=== PATIENT | female | born 1935 | race Caucasian/White ===

== ENCOUNTER 2017-10-18 11:50 | Inpatient (IN) ==
[2017-10-18 14:27] LABS: Basophils # 0.1 K/mcL (0.0-0.2); Basophils % 0.7 %; Eosinophils # 0.1 K/mcL (0.0-0.6); Eosinophils % 1.2 %; Hematocrit 28.9 % (35.3-44.9); Hemoglobin 9.4 g/dL (11.5-15.4); Immature Granulocytes % 0.4 % (0-4); Lymphocytes % 9.6 %; Mean Corpuscular HGB Conc 32.5 g/dL (31.6-35.5); Mean Corpuscular Hemoglobin 30.7 pg (28.0-33.3); Mean Corpuscular Volume 94.4 fL (83.0-100.0); Mean Platelet Volume 11.1 fL (9.4-12.4); Monocytes # 0.5 K/mcL (0.0-1.3); Monocytes % 4.5 %; Platelet Count 208 K/mcL (140-400); Red Blood Count 3.06 M/mcL (3.82-4.97); Red Cell Distribution Width 15.5 % (11.5-14.5); Segmented Neutrophils % 83.6 %
[2017-10-18 14:48] LABS: Alanine Aminotransferase 9 Units/L (7-52); Albumin 4.2 g/dL (3.5-5.7); Albumin/Globulin Ratio 1.4 (1.1-2.2); Alkaline Phosphatase 83 Units/L (34-104); Aspartate Amino Transferase 18 Units/L (13-39); BUN/Creatinine Ratio 19 (6-26); Bilirubin,Total 0.5 mg/dL (0.3-1.0); Blood Urea Nitrogen 15 mg/dL (8-23); Calcium 9.3 mg/dL (8.6-10.3); Carbon Dioxide 28 mEq/L (23-29); Chloride 99 mEq/L (98-107); Globulin 3.1 g/dL (2.4-3.5); Glucose 101 mg/dL (70-105); Osmolality,Calculated 275 (280-300); Potassium 3.9 mEq/L (3.5-5.1); Sodium 132 mEq/L (136-145); Total Protein 7.3 g/dL (6.4-8.9); eGFR For Non-African Americans > 60 (> 60)
[2017-10-18] MEDS ORDERED: Naloxone 0.4 MG/ML INJ IVP PRN (14:54)
[2017-10-18] MEDS ORDERED: Ondansetron 4 MG/2 ML VIAL IVP PRN (14:58)
--- NOTE | 2017-10-18 15:47 | Internal Med History&Physical ---
<PaigeAudi Bunch - Last Filed: 10/18/17 17:56> Date of Encounter: 10/18/17 Time of Encounter: 14:30 Internal Medicine - H&P: HPI Chief complaint: Abdominal pain Admitted From: Intrahospital Transfer Plans for Post Hospital Care: Home History of present illness: Ms. Burr is a 81 year old female w/PMH of CAD, HTN, and TIA presents from the [facility] with chief complaint of abdominal pain and cramping that began after going to bed last night. Patient reports feeling of abdominal swelling and nausea accompanying symptoms. States she has had abdominal pain previously but not like this. Describes pain as generalized and transient. Reports last BM last night was formed. Patient denies recent illness, fever, chills, vomiting, chest pain, diaphoresis, headache, changes in vision, unusual bleeding, shortness of breath, cough, chest congestion, diarrhea, constipation, dizziness , lightheadedness, numbness, tingling, pre-syncope, or syncope. Past Med Surg Social Fam HX - Past Medical History Medical history: coronary artery disease, hyperlipidemia, hypertension, TIA Psychiatric history: no psych history - Past Surgical History Surgical History: cholecystectomy, coronary bypass (CABG), hysterectomy, MEEK/BSO Additional surgical history: 2 stents - Social History Smoking Status: Never smoker Smokeless Tobacco Status: No Alcohol use: none Drug use: none Internal Medicine - H&P: Meds Sertraline [Zoloft] 100 mg PO DAILY 04/29/16 [History] Clopidogrel [Plavix] 75 mg PO DAILY 10/18/17 [History] Diltiazem CD (24hr) [Cardizem CD] 120 mg PO DAILY 10/18/17 [History] Metoprolol [Lopressor] 25 mg PO BID 10/18/17 [History] Oxybutynin Chloride [Ditropan Xl] 5 mg PO DAILY 10/18/17 [History] Pantoprazole Sodium [Protonix] 40 mg PO DAILY 10/18/17 [History] 3 Allergy/AdvReac Type Severity Reaction Status Date / Time Penicillins Allergy Rash Verified 04/17/17 19:28 Sulfa (Sulfonamide Allergy Rash Verified 04/17/17 19:28 Antibiotics) Iodine contrast Allergy Hives Uncoded 04/17/17 19:28 All Systems PM: A 10-system review of systems was performed and is negative for pertinent findings except as documented above in the HPI. - Constitutional Constitutional: as per HPI, no chills, no fever(s), no night sweats - EENT Eyes: no change in vision, no discharge, no pain, no photophobia Ears: no ear discharge, no ear pain, no tinnitus Nose, mouth and throat: no dysphagia, no nasal discharge, no neck pain, no sore throat - Breasts Breasts: as per HPI - Cardiovascular Cardiovascular ROS IM: no chest pain, no diaphoresis, no dyspnea, no lightheadedness, no palpitations, no syncope - Respiratory Respiratory: no cough, no dyspnea, no wheezing, no excessive phlegm production - Gastrointestinal Gastrointestinal: as per HPI, abdominal pain, cramping, nausea, no diarrhea, no hematemesis, no hematochezia, no melena, no vomiting - Genitourinary Genitourinary: no change in urinary stream, no dysuria, no flank pain, no hematuria Menstruation: as per HPI, post hysterectomy - Musculoskeletal Musculoskeletal ROS IM: no numbness, no tingling - Integumentary Integumentary IM: no rash, no unusual bruising - Neurological Neurological ROS: no confusion, no convulsions, no focal weakness, no numbness, no tingling, no tremor(s) - Psychiatric Psychiatric: as per HPI - Endocrine Endocrine IM: as per HPI - Hematologic/Lymphatic Hematologic/Lymphatic: no easy bruising - Allergic/Immunologic Allergic/Immunologic: as per HPI - Constitutional Vitals: Temp Pulse Resp BP Pulse Ox 98.2 F 62 16 97/53 93 10/18/17 13:41 10/18/17 13:41 10/18/17 13:41 10/18/17 13:41 10/18/17 13:41 General appearance: Present: cooperative, A&O X 3, pleasant, no acute distress, answers questions appropriately - Head Head exam: Present: atraumatic, normocephalic - Eye Eye exam: Present: PERRL, conjuntiva pink, sclera anicteric Pupils: Present: PERRL - ENT ENT exam: Present: normal exam - Neck Neck exam general surgery: Present: supple, trachea midline. Absent: lymphadenopathy - Respiratory Respiratory exam: Present: CTAB. Absent: accessory muscle use, rales, rhonchi, wheezes - Cardiovascular Cardiovascular exam: Present: RRR, +S1, +S2. Absent: diastolic murmur, gallop, rubs, systolic murmur - GI/Abdominal GI/Abdominal exam: Present: normal bowel sounds, soft, no peritoneal signs. Absent: distended, tenderness - Rectal Rectal exam: Present: deferred - Additional comments: exam deferred. - Extremities Exam Extremities exam: Present: warm, radial pulses palpable and symmetrical. Absent : calf tenderness, cyanotic, pedal edema - Back Exam Back exam: Present: normal inspection - Neurological Exam Neurological exam: Present: CN II-XII intact, oriented X3, no focal deficits. Absent: pronater drift, facial droop, speech deficit - Psychiatric Psychiatric exam: Present: normal affect, normal mood - Skin Skin exam: Present: dry, intact Internal Med - H&P Results - Labs CBC & Chem 7: 10/18/17 14:10 10/18/17 14:10 Labs: Short CBC 10/18/17 Range/Units 14:10 WBC 10.7 (4.3-11.1) K/mcL Hgb 9.4 L (11.5-15.4) g/dL Hct 28.9 L (35.3-44.9) % Plt Count 208 (140-400) K/mcL Neutrophils # 9.0 H (1.6-8.9) K/mcL BMP 10/18/17 14:10 Sodium 132 L Potassium 3.9 Chloride 99 Carbon Dioxide 28 BUN 15 Creatinine 0.80 Glucose 101 Calcium 9.3 Liver Function 10/18/17 Range/Units 14:10 Total Bilirubin 0.5 (0.3-1.0) mg/dL AST 18 (13-39) Units/L ALT 9 (7-52) Units/L Alkaline Phosphatase 83 (34-104) Units/L Albumin 4.2 (3.5-5.7) g/dL - Diagnostic Studies CT scan - abdomen Additional comments: EXAMINATION: CT OF THE ABDOMEN AND PELVIS WITHOUT CONTRAST 10/18/2017 10:48 am TECHNIQUE: CT of the abdomen and pelvis was performed without the administration of intravenous contrast. Multiplanar reformatted images are provided for review. Dose modulation, iterative reconstruction, and/or weight based adjustment of the mA/kV was utilized to reduce the radiation dose to as low as reasonably achievable. COMPARISON: 04/18/2017 HISTORY: ORDERING SYSTEM PROVIDED HISTORY: abdominal pain, mid, cramping Acute abdominal pain and swelling after eating, initial exam FINDINGS: Lower Chest: Coronary calcification is noted. The heart size is upper normal. Minimal scarring and bronchiectasis is noted at the lung bases. Organs: The gallbladder has been removed. No focal hepatic abnormality is identified. No focal splenic abnormality is appreciated. The pancreas is atrophic. A discrete pancreatic abnormality is not identified. The adrenal glands are unremarkable. The kidneys are not obstructed. GI/Bowel: There is mild small bowel dilatation measuring up to 3.6 cm in diameter. There are several air-fluid levels. There is developing stool within small bowel in the right lower quadrant. The cecum is noted in the posterior pelvis. The appendix not identified. There is no pericecal inflammatory change. There is question of a transition point in the left lower quadrant. There is a small amount of fluid in the mesentery. Changes which are noted in rectosigmoid. Pelvis: The urinary bladder is distended. The uterus has been removed. There is no free fluid in the pelvis. Peritoneum/Retroperitoneum: There is moderate atherosclerotic disease. Postsurgical changes are noted involving the ventral abdominal wall. There is no evidence of free intraperitoneal air. Bones/Soft Tissues: Postsurgical changes are noted in the spine. Anterolisthesis of L4 on L5 is present. There is no evidence of acute fracture or dislocation. CT/CT abd pelvis wo no iv no oral IMPRESSION: 1. Findings consistent with partial small bowel obstruction. A transition point is suspected in the left lower abdomen. 2. Status post cholecystectomy and hysterectomy. D/ / 10/18/2017 11:22:23 Cristi Platt MD / Ashly Pozo Interpreting Provider: Cristi Platt MD - Assessment and plan (1) Partial small bowel obstruction Current Visit: Yes Status: Acute Assessment and plan: Acute partial SBO. CT of the abdomen/pelvis today shows findings consistent with partial small bowel obstruction with transition point suspected in the left lower abdomen. Also status post cholecystectomy and hysterectomy. Pt. reports generalized abdominal pain and cramping that began after going to bed last night. Patient reports feeling of abdominal swelling and nausea accompanying symptoms. States she has had abdominal pain previously but not like this. Describes pain as generalized and transient. Reports last BM last night was formed. Surgery consult ordered and discussed w/Dr. Ely and I appreciate the consult and recommendations as always. Nothing by mouth status for now. Zofran IVP 4 mg every 6 hours when necessary for nausea and vomiting. IVP Protonix 40 mg daily. Will convert his many home meds to IVP meds if necessary. 0.9 NS at 100 mL's per hour. Monitor I&O and daily weight. Pt. discussed w/Dr. Chavez who agrees w/plan of care. Pt. is moderate risk for further morbidity d/t current partial SBO and sx, nausea, hx of previous abdominal pain, drop in Hgb of unknown etiology, and risk factors. Observation. (2) Abdominal pain Current Visit: Yes Status: Acute Assessment and plan: Acute abdominal pain and cramping that began after going to bed last night. Patient reports feeling of abdominal swelling and nausea accompanying symptoms. States she has had abdominal pain previously, but not like this. Describes pain as generalized and transient. Reports last BM last night was formed. No abdominal pain or cramping during exam. Denies unusual bleeding or hemoccult/ melena. IVP Zofran 4 mg Q6HR PRN for N/V. IVP Protonix 40 mg daily. NPO status for now. Qualifiers: Abdominal location: generalized Qualified Code(s): R10.84 - Generalized abdominal pain (3) Drop in hemoglobin Current Visit: Yes Status: Acute Assessment and plan: Acute drop in Hgb today from 9.8 to 9.4. Pt. has hx of low Hgb but denies hx of anemia. Will monitor pt. for signs of bleeding and monitor H/H in f/u labs. (4) CAD (coronary artery disease) Current Visit: Yes Status: Chronic Assessment and plan: Hx of chronic CAD. Continuous cardiac telemetry. Continue pts. Cardizem and Hydralazine ordered PRN w/parameters. Qualifiers: Coronary Disease-Associated Artery/Lesion type: unspecified vessel or lesion type [place] vs. transplanted heart: [place] heart Associated angina: angina presence unspecified Qualified Code(s): I25.10 - Atherosclerotic heart disease of [place] coronary artery without angina pectoris (5) HTN (hypertension) Current Visit: Yes Status: Chronic Assessment and plan: Hx of chronic HTN. Monitor pt. and VS. Will hold pts. Metoprolol for now d/t hypotension and order hydralazine w/parameters PRN. Communication order to monitor pts. BP prior to administering BP medications d/t hypotension. Continue Cardizem (notify provider prior to administering if pt. hypotensive). Qualifiers: Hypertension type: essential hypertension Qualified Code(s): I10 - Essential (primary) hypertension (6) DVT prophylaxis Current Visit: Yes Status: Acute Assessment and plan: Bilateral SCDs on LEs for DVT prophylaxis d/t drop in HGB of unknown etiology. Monitor pt. for signs of bleeding and monitor H/H. - Time Spent With Patient Total time spent is greater than 50% in coordination of care (as documented) at patient's floor/unit and/or counseling patient: Greater than 35 minutes <Luis M Chavez - Last Filed: 10/18/17 19:36> Date of Encounter: 10/18/17 Internal Medicine - H&P: HPI History of present illness: Ms. Burr is a 81 year old female All Systems PM: A 10-system review of systems was performed and is negative for pertinent findings except as documented above in the HPI. - Constitutional Vitals: Temp Pulse Resp BP Pulse Ox 98.2 F 62 16 97/53 93 10/18/17 13:41 10/18/17 13:41 10/18/17 13:41 10/18/17 13:41 10/18/17 13:41 Internal Med - H&P Results - Labs CBC & Chem 7: 10/18/17 14:10 10/18/17 14:10 Labs: Short CBC 10/18/17 Range/Units 14:10 WBC 10.7 (4.3-11.1) K/mcL Hgb 9.4 L (11.5-15.4) g/dL Hct 28.9 L (35.3-44.9) % Plt Count 208 (140-400) K/mcL Neutrophils # 9.0 H (1.6-8.9) K/mcL BMP 10/18/17 14:10 Sodium 132 L Potassium 3.9 Chloride 99 Carbon Dioxide 28 BUN 15 Creatinine 0.80 Glucose 101 Calcium 9.3 Liver Function 10/18/17 Range/Units 14:10 Total Bilirubin 0.5 (0.3-1.0) mg/dL AST 18 (13-39) Units/L ALT 9 (7-52) Units/L Alkaline Phosphatase 83 (34-104) Units/L Albumin 4.2 (3.5-5.7) g/dL - Attending Attestation Discussed patient with SARTHAK and agree with assessment and plan as above Patient is a 81 year old female with PMH significant for hemicolecotomy found to have sbo Patent with gen tenderness on abd exam Gen surgr c/s - Assessment and plan (1) Abdominal pain Current Visit: Yes Status: Acute Qualifiers: Abdominal location: generalized Qualified Code(s): R10.84 - Generalized abdominal pain (2) Partial small bowel obstruction Current Visit: Yes Status: Acute (3) Drop in hemoglobin Current Visit: Yes Status: Acute (4) CAD (coronary artery disease) Current Visit: Yes Status: Chronic Qualifiers: Coronary Disease-Associated Artery/Lesion type: unspecified vessel or lesion type [place] vs. transplanted heart: [place] heart Associated angina: angina presence unspecified Qualified Code(s): I25.10 - Atherosclerotic heart disease of [place] coronary artery without angina pectoris (5) HTN (hypertension) Current Visit: Yes Status: Chronic Qualifiers: Hypertension type: essential hypertension Qualified Code(s): I10 - Essential (primary) hypertension (6) DVT prophylaxis Current Visit: Yes Status: Acute - Time Spent With Patient Total time spent is greater than 50% in coordination of care (as documented) at patient's floor/unit and/or counseling patient:
[2017-10-18] MEDS: Acetaminophen 325 MG TABLET PO PRN (16:36)
[2017-10-18] MEDS: 0.9 % Sodium Chloride 1,000 ML IVC SCH (17:09)
--- NOTE | 2017-10-18 20:50 | General Surgery Consult Note ---
Date of Encounter: 10/18/17 Time of Encounter: 20:14 Assessment and Plan (1) Partial small bowel obstruction Current Visit: Yes Status: Acute 81F with concern for pSBO; NPO plan for SBFT in AM unless she has definitive return of bowel function prior to cont IVF replete lytes activity as tolerated limit narcotics will cont to follow History of Present Illness Consult date: 10/18/17 Reason for consult: abdominal pain History of present illness: 81F prior surgeries (not sure of every surgery she has had, but likely a cholecystectomy, hysterectomy, possible ex lap with either a colostomy or a prior feeding tube) presents with one day abdominal pain. She states she has never had a pain like this before. The pain was localized to her midabdomen, slightly to the right; no associated nausea or vomiting. her last bowel movement and episode of flatus was on 10/17; She presented to [facility] due to the severity of her pain. At present her pain is resolved. A CT scan was obtained, which was reviewed and intepreted by me, which was concerning for a partial SBO. Past Med Surg Social Fam HX - Past Medical History Medical history: coronary artery disease, hyperlipidemia, hypertension, TIA Psychiatric history: no psych history - Past Surgical History Surgical History: cholecystectomy, coronary bypass (CABG), hysterectomy, MEEK/BSO Additional surgical history: 2 stents - Social History Smoking Status: Never smoker Smokeless Tobacco Status: No Alcohol use: none Drug use: none - Additional Family History Additional family history: non contributory Medications and Allergies Sertraline [Zoloft] 100 mg PO DAILY 04/29/16 [History] Clopidogrel [Plavix] 75 mg PO DAILY 10/18/17 [History] Diltiazem CD (24hr) [Cardizem CD] 120 mg PO DAILY 10/18/17 [History] Metoprolol [Lopressor] 25 mg PO BID 10/18/17 [History] Oxybutynin Chloride [Ditropan Xl] 5 mg PO DAILY 10/18/17 [History] Pantoprazole Sodium [Protonix] 40 mg PO DAILY 10/18/17 [History] 3 Allergy/AdvReac Type Severity Reaction Status Date / Time Penicillins Allergy Rash Verified 04/17/17 19:28 Sulfa (Sulfonamide Allergy Rash Verified 04/17/17 19:28 Antibiotics) Iodine contrast Allergy Hives Uncoded 04/17/17 19:28 Review of Systems All systems PM: The remainder of the systems were reviewed and are negative General Surgery Exam Initial Vital Signs Temp Pulse Resp BP Pulse Ox 98.2 F 62 16 97/53 93 10/18/17 13:41 10/18/17 13:41 10/18/17 13:41 10/18/17 13:41 10/18/17 13:41 - General physical appearance no distress - Eyes normal ocular movement - ENT normocephalic - Neck no lymphadectomy - Respiratory normal expansion - Cardiovascular Cardiovascular exam: Present: RRR - Abdomen Abdomen general surgery: Present: soft, non tender, surgical scars - Integumentary Integumentary general surgery: Present: warm and dry - Neurologic Present: CN 2-12 grossly intact - Psychiatric Psychiatric general surgery: Present: A&Ox3 Exam Initial Vital Signs Temp Pulse Resp BP Pulse Ox 98.2 F 62 16 97/53 93 10/18/17 13:41 10/18/17 13:41 10/18/17 13:41 10/18/17 13:41 10/18/17 13:41 Results - Labs 10/18/17 14:10 10/18/17 14:10 Abnormal lab results RBC 3.06 M/mcL (3.82-4.97) L 10/18/17 14:10 Hgb 9.4 g/dL (11.5-15.4) L 10/18/17 14:10 Hct 28.9 % (35.3-44.9) L 10/18/17 14:10 RDW 15.5 % (11.5-14.5) H 10/18/17 14:10 Neutrophils # 9.0 K/mcL (1.6-8.9) H 10/18/17 14:10 Sodium 132 mEq/L (136-145) L 10/18/17 14:10 POC Glucose 100 mg/dL (70-99) H 10/18/17 17:54 Calculated Osmolality 275 (280-300) L 10/18/17 14:10 Diabetes panel 10/18/17 Range/Units 14:10 Sodium 132 L (136-145) mEq/L Potassium 3.9 (3.5-5.1) mEq/L Chloride 99 (98-107) mEq/L Carbon Dioxide 28 (23-29) mEq/L BUN 15 (8-23) mg/dL Creatinine 0.80 (0.60-1.20) mg/dL Glucose 101 (70-105) mg/dL Calcium 9.3 (8.6-10.3) mg/dL AST 18 (13-39) Units/L ALT 9 (7-52) Units/L Alkaline Phosphatase 83 (34-104) Units/L Albumin 4.2 (3.5-5.7) g/dL Calcium panel 10/18/17 Range/Units 14:10 Calcium 9.3 (8.6-10.3) mg/dL Albumin 4.2 (3.5-5.7) g/dL Pituitary panel 10/18/17 Range/Units 14:10 Sodium 132 L (136-145) mEq/L Potassium 3.9 (3.5-5.1) mEq/L Chloride 99 (98-107) mEq/L Carbon Dioxide 28 (23-29) mEq/L BUN 15 (8-23) mg/dL Creatinine 0.80 (0.60-1.20) mg/dL Glucose 101 (70-105) mg/dL Calcium 9.3 (8.6-10.3) mg/dL Adrenal panel 10/18/17 Range/Units 14:10 Sodium 132 L (136-145) mEq/L Potassium 3.9 (3.5-5.1) mEq/L Chloride 99 (98-107) mEq/L Carbon Dioxide 28 (23-29) mEq/L BUN 15 (8-23) mg/dL Creatinine 0.80 (0.60-1.20) mg/dL Glucose 101 (70-105) mg/dL Calcium 9.3 (8.6-10.3) mg/dL Total Bilirubin 0.5 (0.3-1.0) mg/dL AST 18 (13-39) Units/L ALT 9 (7-52) Units/L Alkaline Phosphatase 83 (34-104) Units/L Albumin 4.2 (3.5-5.7) g/dL All other labs normal. - Imaging CT scan - abdomen: report reviewed, image reviewed CT scan - pelvis: report reviewed, image reviewed Consult Discharge Plan - Plan Referrals: Adam Salinas, [Primary Care Provider] -
[2017-10-18 22:22] LABS: Hematocrit 30.6 % (35.3-44.9); Hemoglobin 10.1 g/dL (11.5-15.4)
[2017-10-19] MEDS: 0.9 % Sodium Chloride 1,000 ML IVC SCH ×2 (02:56→17:08)
[2017-10-19 06:42] LABS: Alanine Aminotransferase 7 Units/L (7-52); Albumin 3.6 g/dL (3.5-5.7); Albumin/Globulin Ratio 1.4 (1.1-2.2); Alkaline Phosphatase 70 Units/L (34-104); Aspartate Amino Transferase 15 Units/L (13-39); BUN/Creatinine Ratio 15 (6-26); Bilirubin,Total 0.4 mg/dL (0.3-1.0); Blood Urea Nitrogen 12 mg/dL (8-23); Calcium 8.9 mg/dL (8.6-10.3); Carbon Dioxide 25 mEq/L (23-29); Chloride 107 mEq/L (98-107); Chol/HDL Ratio 2.5 (0-4.9); Cholesterol 127 mg/dL (< 200); Globulin 2.6 g/dL (2.4-3.5); Glucose 97 mg/dL (70-105); HDL Cholesterol 51 mg/dL (40-59); LDL Cholesterol,Calculated 58 mg/dL (0-99); Osmolality,Calculated 284 (280-300); Potassium 3.8 mEq/L (3.5-5.1); Sodium 137 mEq/L (136-145); Total Protein 6.2 g/dL (6.4-8.9); Triglycerides 91 mg/dL (< 150); eGFR For Non-African Americans > 60 (> 60)
[2017-10-19 07:07] LABS: Eosinophils % 2.7 %; Hematocrit 25.3 % (35.3-44.9); Immature Granulocytes % 0.5 % (0-4); Lymphocytes % 18.6 %; Mean Corpuscular HGB Conc 32.8 g/dL (31.6-35.5); Mean Corpuscular Hemoglobin 30.5 pg (28.0-33.3); Mean Platelet Volume 11.4 fL (9.4-12.4); Monocytes % 10.4 %; Platelet Count 185 K/mcL (140-400); Red Blood Count 2.72 M/mcL (3.82-4.97); Red Cell Distribution Width 15.6 % (11.5-14.5); Segmented Neutrophils % 66.7 %
[2017-10-19 07:08] LABS: Basophils # 0.1 K/mcL (0.0-0.2); Basophils % 1.1 %; Eosinophils # 0.2 K/mcL (0.0-0.6); Lymphocytes # 1.2 K/mcL (0.6-4.6); Monocytes # 0.7 K/mcL (0.0-1.3); Neutrophils # 4.2 K/mcL (1.6-8.9)
[2017-10-19 07:11] LABS: Hemoglobin 8.3 g/dL (11.5-15.4)
--- NOTE | 2017-10-19 08:25 | General Surgery Progress Note ---
Date of Encounter: 10/19/17 Time of Encounter: 08:23 - Assessment and Plan (1) Partial small bowel obstruction Current Visit: Yes Status: Acute 81F with concern for pSBO; now with flatus, but mild tenderness along right side of abdomen okay for trial of clear liquids from surgery standpoint; if able to tolerated clear liquids, then advance as tolerated recommend bowel regimen surgery will cont to follow Subjective Patient reports: no new complaints, flatus Objective Vital Signs - Last 8 Hours Temp Pulse Resp BP Pulse Ox 10/19/17 06:54 98.3 F 73 14 133/62 95 10/19/17 03:56 98.3 F 74 15 104/60 92 Intake and Output 10/18/17 10/19/17 10/19/17 23:59 07:59 15:59 Intake Total 1000 / 1000 Output Total 0 / 0 Balance 1000 / 1000 Intake: IV Fluids 1000 / 1000 0.9 % Sodium Chloride 1,000 ML 1000 / 1000 @ 100 mls/hr IVC .Q10H FAROOQ Rx#: [id number] Oral 0 / 0 Output: Urine 0 / 0 Other: Meal NPO NPO Weight 57.516 kg Blood Glucose* 100 Patient Weight 10/19/17 23:59 Weight 57.516 kg - General physical appearance no distress - Respiratory normal expansion, normal respiratory effort - Cardiovascular Cardiovascular exam: Present: RRR - Abdomen Abdomen: Present: soft, tender (along right side of abdomen; non peritoneal) - Neurologic CN 2-12 grossly intact - Psychiatric oriented to time, oriented to person, oriented to place - Labs 10/19/17 05:48 10/19/17 05:48 Diabetes panel 10/18/17 10/19/17 Range/Units 14:10 05:48 Sodium 132 L 137 (136-145) mEq/L Potassium 3.9 3.8 (3.5-5.1) mEq/L Chloride 99 107 (98-107) mEq/L Carbon Dioxide 28 25 (23-29) mEq/L BUN 15 12 (8-23) mg/dL Creatinine 0.80 0.81 (0.60-1.20) mg/dL Glucose 101 97 (70-105) mg/dL Calcium 9.3 8.9 (8.6-10.3) mg/dL AST 18 15 (13-39) Units/L ALT 9 7 (7-52) Units/L Alkaline Phosphatase 83 70 (34-104) Units/L Albumin 4.2 3.6 (3.5-5.7) g/dL Triglycerides 91 (< 150) mg/dL HDL Cholesterol 51 (40-59) mg/dL Calcium panel 10/18/17 10/19/17 Range/Units 14:10 05:48 Calcium 9.3 8.9 (8.6-10.3) mg/dL Albumin 4.2 3.6 (3.5-5.7) g/dL Pituitary panel 10/18/17 10/19/17 Range/Units 14:10 05:48 Sodium 132 L 137 (136-145) mEq/L Potassium 3.9 3.8 (3.5-5.1) mEq/L Chloride 99 107 (98-107) mEq/L Carbon Dioxide 28 25 (23-29) mEq/L BUN 15 12 (8-23) mg/dL Creatinine 0.80 0.81 (0.60-1.20) mg/dL Glucose 101 97 (70-105) mg/dL Calcium 9.3 8.9 (8.6-10.3) mg/dL Adrenal panel 10/18/17 10/19/17 Range/Units 14:10 05:48 Sodium 132 L 137 (136-145) mEq/L Potassium 3.9 3.8 (3.5-5.1) mEq/L Chloride 99 107 (98-107) mEq/L Carbon Dioxide 28 25 (23-29) mEq/L BUN 15 12 (8-23) mg/dL Creatinine 0.80 0.81 (0.60-1.20) mg/dL Glucose 101 97 (70-105) mg/dL Calcium 9.3 8.9 (8.6-10.3) mg/dL Total Bilirubin 0.5 0.4 (0.3-1.0) mg/dL AST 18 15 (13-39) Units/L ALT 9 7 (7-52) Units/L Alkaline Phosphatase 83 70 (34-104) Units/L Albumin 4.2 3.6 (3.5-5.7) g/dL Consult Discharge Plan - Plan Referrals: Adam Salinas DO [Primary Care Provider] -
[2017-10-19] MEDS: Diltiazem CD (24hr) 120 MG CAPSULE PO SCH (09:48)
[2017-10-19] MEDS: Pantoprazole 40 MG VIAL IVP SCH (09:48)
--- NOTE | 2017-10-19 13:52 | Internal Med Progress Note ---
<Kyra Oscar - Last Filed: 10/19/17 13:48> Hospitalist Progress Note - Encounter Date of Encounter: 10/19/17 Time of Encounter: 11:10 - Subjective Interval History: Patient is an 81 yo F with history of CAD, HTN, HLD, and TIA who presented to [place] ED with complaints of abdominal pain, nausea, and bloating. She was found to have evidence of partial small bowel obstruction on CT abdomen. She has been seen by general surgery who recommended small bowel follow through pending return of bowel function. She has been kept NPO. Today the patient states that she is feeling well. She states the pain is intermittent and only appreciable when touched. She states she has not had a bowel movement but has had flatus. She states she has been up to bed and has showered. - Exam Vitals: Temp Pulse Resp BP Pulse Ox 98.1 F 71 14 158/70 96 10/19/17 10:55 10/19/17 10:55 10/19/17 10:55 10/19/17 10:55 10/19/17 10:55 Exam: General appearance: Alert oriented 3 able to follow commands. Laying in bed comfortably. Pleasant Head Head exam: Present: atraumatic, normocephalic - Eye Eye exam: Present: EOMI, PERRL. Absent: conjunctival injection, nystagmus, scleral icterus - ENT ENT exam: Present: mucous membranes moist, normal external ear exam, normal oropharynx - Neck Neck exam general surgery: Present: supple, trachea midline. Absent: lymphadenopathy, tenderness, thyromegaly - Respiratory Respiratory exam: Present: CTAB. Absent: accessory muscle use, rales, rhonchi, wheezes Additional comments: Normal WOB - Cardiovascular Cardiovascular exam: Present: RRR, +S1, +S2. Absent: diastolic murmur, gallop, rubs, systolic murmur - GI/Abdominal GI/Abdominal exam: Present: normal bowel sounds, soft, tenderness in LLQ Absent : distended, guarding, hepatomegaly, mass, rebound, splenomegaly - Neurological Exam Neurological exam: Present: alert, oriented X3, no focal deficits Absent: facial droop, speech deficit - Psychiatric Psychiatric exam: Present: normal affect, normal mood. Absent: agitated, anxious, depressed - Skin Skin exam: Present: dry, intact, warm. Absent: cyanosis, rash - Assessment and Plan (1) Partial small bowel obstruction Current Visit: Yes Status: Acute Assessment and Plan: * Patient being seen by general surgery * Given her return of flatulence, general surgery does not feel there is any need to perform small bowel follow through * They recommend advancement from NPO to clear liquid diet with return to normal diet as tolerated * Continue on 100mL NS per hour * Continue with zofran 4mg IV q 6 prn * Protonix 40mg q day * Will continue to monitor (2) CAD (coronary artery disease) Current Visit: Yes Status: Chronic Assessment and Plan: * Patient continues on plavix 75mg and cardizem 120mg (3) HTN (hypertension) Current Visit: Yes Status: Chronic Assessment and Plan: * Continue on metoprolol 25mg BID, blood pressures stable today * hydralazine 10mg prn (4) Overactive bladder Current Visit: Yes Status: Chronic Assessment and Plan: * Continue oxybutynin 5mg (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 Current Visit: Yes Status: Acute Assessment and Plan: * Continue home zoloft 100mg (6) DVT prophylaxis Current Visit: Yes Status: Acute Assessment and Plan: * Patient continues on home plavix 75mg, is active and wears SCDs while in bed - Time Spent with Patient Total time spent is greater than 50% in coordination of care (as documented) at patient's floor/unit and/or counseling patient: 25 - 35 minutes Plan of Care Discussed with: patient Internal Medicine: Result - Labs CBC & Chem 7: 10/19/17 05:48 10/19/17 05:48 Labs: Short CBC 10/18/17 10/18/17 10/19/17 Range/Units 14:10 21:47 05:48 WBC 10.7 6.3 (4.3-11.1) K/mcL Hgb 9.4 L 10.1 L 8.3 L D (11.5-15.4) g/dL Hct 28.9 L 30.6 L 25.3 L (35.3-44.9) % Plt Count 208 185 (140-400) K/mcL Neutrophils # 9.0 H 4.2 (1.6-8.9) K/mcL BMP 10/18/17 10/19/17 14:10 05:48 Sodium 132 L 137 Potassium 3.9 3.8 Chloride 99 107 Carbon Dioxide 28 25 BUN 15 12 Creatinine 0.80 0.81 Glucose 101 97 Calcium 9.3 8.9 Liver Function 10/18/17 10/19/17 Range/Units 14:10 05:48 Total Bilirubin 0.5 0.4 (0.3-1.0) mg/dL AST 18 15 (13-39) Units/L ALT 9 7 (7-52) Units/L Alkaline Phosphatase 83 70 (34-104) Units/L Albumin 4.2 3.6 (3.5-5.7) g/dL - Impressions Impressions KUB X-Ray 10/19/17 07:00 IMPRESSION: No air-filled dilated loops of bowel. D/ / Leonila Lee MD / Leonila Lee MD Interpreting Provider: Leonila Lee MD Consult Discharge Plan - Plan Referrals: Adam Salinas DO [Primary Care Provider] - <David Caab - Last Filed: 10/19/17 16:28> Hospitalist Progress Note - Encounter Date of Encounter: 10/19/17 - Exam Vitals: Temp Pulse Resp BP Pulse Ox 98.1 F 73 15 131/68 97 10/19/17 14:13 10/19/17 14:13 10/19/17 14:13 10/19/17 14:13 10/19/17 14:13 - Assessment and Plan (1) Abdominal pain Current Visit: Yes Status: Inactive (2) Partial small bowel obstruction Current Visit: Yes Status: Acute (3) Drop in hemoglobin Current Visit: Yes Status: Acute (4) CAD (coronary artery disease) Current Visit: Yes Status: Chronic (5) HTN (hypertension) Current Visit: Yes Status: Chronic (6) DVT prophylaxis Current Visit: Yes Status: Acute - Time Spent with Patient Total time spent is greater than 50% in coordination of care (as documented) at patient's floor/unit and/or counseling patient: Internal Medicine: Result - Labs CBC & Chem 7: 10/19/17 05:48 10/19/17 05:48 Labs: Short CBC 10/18/17 10/19/17 Range/Units 21:47 05:48 WBC 6.3 (4.3-11.1) K/mcL Hgb 10.1 L 8.3 L D (11.5-15.4) g/dL Hct 30.6 L 25.3 L (35.3-44.9) % Plt Count 185 (140-400) K/mcL Neutrophils # 4.2 (1.6-8.9) K/mcL BMP 10/19/17 05:48 Sodium 137 Potassium 3.8 Chloride 107 Carbon Dioxide 25 BUN 12 Creatinine 0.81 Glucose 97 Calcium 8.9 Liver Function 10/19/17 Range/Units 05:48 Total Bilirubin 0.4 (0.3-1.0) mg/dL AST 15 (13-39) Units/L ALT 7 (7-52) Units/L Alkaline Phosphatase 70 (34-104) Units/L Albumin 3.6 (3.5-5.7) g/dL - Impressions Impressions KUB X-Ray 10/19/17 07:00 IMPRESSION: No air-filled dilated loops of bowel. D/ / Leonila Lee MD / Leonila Lee MD Interpreting Provider: Leonila Lee MD - Attending Attestation I have seen and examined this patient independently. I have discussed with resident physician Dr. Ann regarding the management plan. Agree with the documentation. <Kyra Oscar M - Last Filed: 10/19/17 13:48> (2) CAD (coronary artery disease) Qualifiers: Coronary Disease-Associated Artery/Lesion type: unspecified vessel or lesion type [place] vs. transplanted heart: [place] heart Associated angina: angina presence unspecified Qualified Code(s): I25.10 - Atherosclerotic heart disease of [place] coronary artery without angina pectoris (3) HTN (hypertension) Qualifiers: Hypertension type: essential hypertension Qualified Code(s): I10 - Essential (primary) hypertension <David Caba - Last Filed: 10/19/17 16:28> (1) Abdominal pain Qualifiers: Abdominal location: generalized Qualified Code(s): R10.84 - Generalized abdominal pain (4) CAD (coronary artery disease) Qualifiers: Coronary Disease-Associated Artery/Lesion type: unspecified vessel or lesion type [place] vs. transplanted heart: [place] heart Associated angina: angina presence unspecified Qualified Code(s): I25.10 - Atherosclerotic heart disease of [place] coronary artery without angina pectoris (5) HTN (hypertension) Qualifiers: Hypertension type: essential hypertension Qualified Code(s): I10 - Essential (primary) hypertension
[2017-10-20 03:07] LABS: Basophils # 0.1 K/mcL (0.0-0.2); Basophils % 1.1 %; Eosinophils # 0.2 K/mcL (0.0-0.6); Eosinophils % 3.3 %; Hematocrit 25.1 % (35.3-44.9); Hemoglobin 8.2 g/dL (11.5-15.4); Immature Granulocytes % 0.5 % (0-4); Lymphocytes # 1.2 K/mcL (0.6-4.6); Lymphocytes % 18.6 %; Mean Corpuscular HGB Conc 32.7 g/dL (31.6-35.5); Mean Corpuscular Hemoglobin 30.5 pg (28.0-33.3); Mean Corpuscular Volume 93.3 fL (83.0-100.0); Mean Platelet Volume 11.1 fL (9.4-12.4); Monocytes # 0.8 K/mcL (0.0-1.3); Monocytes % 11.4 %; Neutrophils # 4.3 K/mcL (1.6-8.9); Platelet Count 174 K/mcL (140-400); Red Blood Count 2.69 M/mcL (3.82-4.97); Red Cell Distribution Width 15.5 % (11.5-14.5); Segmented Neutrophils % 65.1 %
[2017-10-20 03:21] LABS: Alanine Aminotransferase 8 Units/L (7-52); Albumin 3.7 g/dL (3.5-5.7); Albumin/Globulin Ratio 1.4 (1.1-2.2); Alkaline Phosphatase 63 Units/L (34-104); Aspartate Amino Transferase 17 Units/L (13-39); BUN/Creatinine Ratio 14 (6-26); Bilirubin,Total 0.4 mg/dL (0.3-1.0); Blood Urea Nitrogen 10 mg/dL (8-23); Calcium 8.9 mg/dL (8.6-10.3); Carbon Dioxide 24 mEq/L (23-29); Chloride 106 mEq/L (98-107); Globulin 2.6 g/dL (2.4-3.5); Glucose 94 mg/dL (70-105); Osmolality,Calculated 285 (280-300); Potassium 3.4 mEq/L (3.5-5.1); Sodium 138 mEq/L (136-145); Total Protein 6.3 g/dL (6.4-8.9); eGFR For Non-African Americans > 60 (> 60)
[2017-10-20] MEDS: 0.9 % Sodium Chloride 1,000 ML IVC SCH (04:05)
[2017-10-20] MEDS: Acetaminophen 325 MG TABLET PO PRN ×2 (04:12→21:44)
[2017-10-20] MEDS: Pantoprazole 40 MG VIAL IVP SCH (08:58)
[2017-10-20] MEDS: Diltiazem CD (24hr) 120 MG CAPSULE PO SCH (08:58)
--- NOTE | 2017-10-20 09:26 | General Surgery Progress Note ---
<Tatum Eastman - Last Filed: 10/20/17 09:22> Date of Encounter: 10/20/17 Time of Encounter: 07:30 - Assessment and Plan (1) Partial small bowel obstruction Current Visit: Yes Status: Acute States abdominal discomfort is improving. She feels like she needs to have a BM. Will initiate bowel regimen (miralax daily until daily BMs that are mashed potatoes consistency, then decrease to every other day until daily BMs, then decrease to PRN). Dulcolax BID to continue after miralax is completed. May hold for loose stool. Advance diet to soft anticipate surgical sign off if patient tolerates diet (per attending attestation). Subjective Patient reports: no new complaints, feels better, pain is less, voiding w/o difficulty, flatus, bowel movement, afebrile Objective Vital Signs - Last 8 Hours Temp Pulse Resp BP Pulse Ox 10/20/17 07:59 98.0 F 74 14 127/65 96 10/20/17 03:54 98.0 F 67 15 134/55 96 Intake and Output 10/19/17 10/20/17 10/20/17 23:59 07:59 15:59 Intake Total 840 / 840 1240 / 1240 Output Total 1000 / 1000 600 / 600 Balance -160 / -160 640 / 640 Intake: IV Fluids 1000 / 1000 0.9 % Sodium Chloride 1,000 ML 1000 / 1000 @ 100 mls/hr IVC .Q10H [facility] Rx#: [id number] Oral 840 / 840 240 / 240 Output: Urine 1000 / 1000 600 / 600 Other: Meal Dinner Percent of Meal Consumed 0% Weight 59.6 kg Patient Weight 10/20/17 23:59 Weight 59.6 kg - General physical appearance no distress, no pain - Eyes normal ocular movement - ENT atraumatic, normocephalic - Neck Neck exam: trachea midline, no venous distension - Respiratory normal expansion, normal respiratory effort, clear to auscultation - Cardiovascular Cardiovascular exam: Present: RRR - Abdomen Abdomen: Present: bowel sounds present, soft, tender (right periumbilical area) Hernia: none - Integumentary no rash, no growths - Neurologic normal coordination, normal sensation - Musculoskeletal normal posture - Psychiatric oriented to time, oriented to person, oriented to place, speech is normal, memory intact - Labs 10/20/17 02:28 10/20/17 02:28 Diabetes panel 10/20/17 Range/Units 02:28 Sodium 138 (136-145) mEq/L Potassium 3.4 L (3.5-5.1) mEq/L Chloride 106 (98-107) mEq/L Carbon Dioxide 24 (23-29) mEq/L BUN 10 (8-23) mg/dL Creatinine 0.73 (0.60-1.20) mg/dL Glucose 94 (70-105) mg/dL Calcium 8.9 (8.6-10.3) mg/dL AST 17 (13-39) Units/L ALT 8 (7-52) Units/L Alkaline Phosphatase 63 (34-104) Units/L Albumin 3.7 (3.5-5.7) g/dL Calcium panel 10/20/17 Range/Units 02:28 Calcium 8.9 (8.6-10.3) mg/dL Albumin 3.7 (3.5-5.7) g/dL Pituitary panel 10/20/17 Range/Units 02:28 Sodium 138 (136-145) mEq/L Potassium 3.4 L (3.5-5.1) mEq/L Chloride 106 (98-107) mEq/L Carbon Dioxide 24 (23-29) mEq/L BUN 10 (8-23) mg/dL Creatinine 0.73 (0.60-1.20) mg/dL Glucose 94 (70-105) mg/dL Calcium 8.9 (8.6-10.3) mg/dL Adrenal panel 10/20/17 Range/Units 02:28 Sodium 138 (136-145) mEq/L Potassium 3.4 L (3.5-5.1) mEq/L Chloride 106 (98-107) mEq/L Carbon Dioxide 24 (23-29) mEq/L BUN 10 (8-23) mg/dL Creatinine 0.73 (0.60-1.20) mg/dL Glucose 94 (70-105) mg/dL Calcium 8.9 (8.6-10.3) mg/dL Total Bilirubin 0.4 (0.3-1.0) mg/dL AST 17 (13-39) Units/L ALT 8 (7-52) Units/L Alkaline Phosphatase 63 (34-104) Units/L Albumin 3.7 (3.5-5.7) g/dL - VTE Documentation of Mechanical Device: Intermittent pneumatic compression device Consult Discharge Plan - Plan Referrals: Adam Salinas, [Primary Care Provider] - <Sanket Ely - Last Filed: 10/20/17 13:49> Date of Encounter: 10/20/17 - Assessment and Plan (1) Partial small bowel obstruction Current Visit: Yes Status: Acute Objective Vital Signs - Last 8 Hours Temp Pulse Resp BP Pulse Ox 10/20/17 10:57 97.9 F 67 14 142/62 94 10/20/17 07:59 98.0 F 74 14 127/65 96 Intake and Output 10/19/17 10/20/17 10/20/17 23:59 07:59 15:59 Intake Total 840 / 840 1240 / 1240 240 / 240 Output Total 1000 / 1000 600 / 600 0 / 0 Balance -160 / -160 640 / 640 240 / 240 Intake: IV Fluids 1000 / 1000 0.9 % Sodium Chloride 1,000 ML 1000 / 1000 @ 100 mls/hr IVC .Q10H [facility] Rx#: [id number] Oral 840 / 840 240 / 240 240 / 240 Output: Urine 1000 / 1000 600 / 600 0 / 0 Other: Meal Dinner Breakfast Percent of Meal Consumed 0% Stool Size Small Stool Consistency formed Stool Characteristics Normal for Patient Stool Color Brown # Voids 1 Weight 59.6 kg Patient Weight 10/20/17 23:59 Weight 59.6 kg - Labs 10/20/17 02:28 10/20/17 02:28 Diabetes panel 10/20/17 Range/Units 02:28 Sodium 138 (136-145) mEq/L Potassium 3.4 L (3.5-5.1) mEq/L Chloride 106 (98-107) mEq/L Carbon Dioxide 24 (23-29) mEq/L BUN 10 (8-23) mg/dL Creatinine 0.73 (0.60-1.20) mg/dL Glucose 94 (70-105) mg/dL Calcium 8.9 (8.6-10.3) mg/dL AST 17 (13-39) Units/L ALT 8 (7-52) Units/L Alkaline Phosphatase 63 (34-104) Units/L Albumin 3.7 (3.5-5.7) g/dL Calcium panel 10/20/17 Range/Units 02:28 Calcium 8.9 (8.6-10.3) mg/dL Albumin 3.7 (3.5-5.7) g/dL Pituitary panel 10/20/17 Range/Units 02:28 Sodium 138 (136-145) mEq/L Potassium 3.4 L (3.5-5.1) mEq/L Chloride 106 (98-107) mEq/L Carbon Dioxide 24 (23-29) mEq/L BUN 10 (8-23) mg/dL Creatinine 0.73 (0.60-1.20) mg/dL Glucose 94 (70-105) mg/dL Calcium 8.9 (8.6-10.3) mg/dL Adrenal panel 10/20/17 Range/Units 02:28 Sodium 138 (136-145) mEq/L Potassium 3.4 L (3.5-5.1) mEq/L Chloride 106 (98-107) mEq/L Carbon Dioxide 24 (23-29) mEq/L BUN 10 (8-23) mg/dL Creatinine 0.73 (0.60-1.20) mg/dL Glucose 94 (70-105) mg/dL Calcium 8.9 (8.6-10.3) mg/dL Total Bilirubin 0.4 (0.3-1.0) mg/dL AST 17 (13-39) Units/L ALT 8 (7-52) Units/L Alkaline Phosphatase 63 (34-104) Units/L Albumin 3.7 (3.5-5.7) g/dL - Attending Attestation patient seen and examined; i have reviewed all labs, imaging, and pertinent notes, including this one. I agree with the above assessment and plan and wish to add the following... tolerating diet, having bowel function; general surgery will sign off; please call with any new questions or concerns.
--- NOTE | 2017-10-20 14:26 | Internal Med Progress Note ---
<Danna Zhou - Last Filed: 10/20/17 14:22> Hospitalist Progress Note - Encounter Date of Encounter: 10/20/17 Time of Encounter: 14:22 - Subjective Interval History: 81 y/o female with history of CAD, HLD, HTN, and multiple past abdominal surgeries presented with abdominal pain and nausea and found to have partial Small Bowel Obstruction. Today she reports that pain is improving and nausea has resolved. She tolerated oatmeal this morning with out symptoms. Normal bowel movement this morning. No events overnight. Denies fever, chills, vomiting or diarrhea. Admits to history of chronic constipation with daily bowel movement that hard and painful stools - Exam Vitals: Temp Pulse Resp BP Pulse Ox 97.9 F 67 14 142/62 94 10/20/17 10:57 10/20/17 10:57 10/20/17 10:57 10/20/17 10:57 10/20/17 10:57 Exam: General: pleasant female in no acute distress, A&Ox3 Cardiac: RRR no murmurs or rubs Respiratory: mild wheeze in left lower lobe but otherwise clear. no rales or stridor Abdomen: multiple surgical scars noted. Hyperactive bowels, tender to palpation in right and left lower quadrants. Soft and no guarding Extremity: no pedal edema, peripheral pulses intact - Assessment and Plan (1) Partial small bowel obstruction Current Visit: Yes Status: Acute Assessment and Plan: - advance diet to regular as tolerated - continue Protonix - discontinue IV fluids - Zofran PRN - per surgery: initiate bowel regimen (miralax daily until daily BMs that are mashed potatoes consistency, then decrease to every other day until daily BMs, then decrease to PRN). - Then, take Dulcolax BID to continue after miralax is completed. May hold for loose stool (2) CAD (coronary artery disease) Current Visit: Yes Status: Chronic Assessment and Plan: continue home dose Plavix (3) HTN (hypertension) Current Visit: Yes Status: Chronic Assessment and Plan: Lasix 40mg Bid was inadvertently prescribed overnight but none was administers to no harm done. - Hold Metoprolol - Continue home Cardizem - continue Hydralazine PRN for BP over 170/110 DVT Prophylaxis: continue home dose Plavix - Summary of Assessment and Plan Summary of Assessment and Plan: Anticipate discharge Tuesday morning if tolerate normal diet. To home with previously established home health - Time Spent with Patient Total time spent is greater than 50% in coordination of care (as documented) at patient's floor/unit and/or counseling patient: 25 - 35 minutes Internal Medicine: Result - Labs CBC & Chem 7: 10/20/17 02:28 10/20/17 02:28 Labs: Short CBC 10/20/17 Range/Units 02:28 WBC 6.6 (4.3-11.1) K/mcL Hgb 8.2 L (11.5-15.4) g/dL Hct 25.1 L (35.3-44.9) % Plt Count 174 (140-400) K/mcL Neutrophils # 4.3 (1.6-8.9) K/mcL BMP 10/20/17 02:28 Sodium 138 Potassium 3.4 L Chloride 106 Carbon Dioxide 24 BUN 10 Creatinine 0.73 Glucose 94 Calcium 8.9 Liver Function 10/20/17 Range/Units 02:28 Total Bilirubin 0.4 (0.3-1.0) mg/dL AST 17 (13-39) Units/L ALT 8 (7-52) Units/L Alkaline Phosphatase 63 (34-104) Units/L Albumin 3.7 (3.5-5.7) g/dL - VTE Documentation of Mechanical Device: Intermittent pneumatic compression device Consult Discharge Plan - Plan Referrals: Adam Salinas DO [Primary Care Provider] - <David Caba - Last Filed: 10/20/17 15:45> Hospitalist Progress Note - Encounter Date of Encounter: 10/20/17 - Exam Vitals: Temp Pulse Resp BP Pulse Ox 98.0 F 67 14 159/56 94 10/20/17 15:37 10/20/17 15:37 10/20/17 15:37 10/20/17 15:37 10/20/17 15:37 - Assessment and Plan (1) Abdominal pain Current Visit: Yes Status: Inactive (2) Partial small bowel obstruction Current Visit: Yes Status: Acute (3) Drop in hemoglobin Current Visit: Yes Status: Acute (4) CAD (coronary artery disease) Current Visit: Yes Status: Chronic (5) HTN (hypertension) Current Visit: Yes Status: Chronic (6) DVT prophylaxis Current Visit: Yes Status: Acute - Time Spent with Patient Total time spent is greater than 50% in coordination of care (as documented) at patient's floor/unit and/or counseling patient: Internal Medicine: Result - Labs CBC & Chem 7: 10/20/17 02:28 10/20/17 02:28 Labs: Short CBC 10/20/17 Range/Units 02:28 WBC 6.6 (4.3-11.1) K/mcL Hgb 8.2 L (11.5-15.4) g/dL Hct 25.1 L (35.3-44.9) % Plt Count 174 (140-400) K/mcL Neutrophils # 4.3 (1.6-8.9) K/mcL BMP 10/20/17 02:28 Sodium 138 Potassium 3.4 L Chloride 106 Carbon Dioxide 24 BUN 10 Creatinine 0.73 Glucose 94 Calcium 8.9 Liver Function 10/20/17 Range/Units 02:28 Total Bilirubin 0.4 (0.3-1.0) mg/dL AST 17 (13-39) Units/L ALT 8 (7-52) Units/L Alkaline Phosphatase 63 (34-104) Units/L Albumin 3.7 (3.5-5.7) g/dL - Attending Attestation I have seen and examined this patient independently. I have discussed with resident physician Dr. Zhou regarding the management plan. Agree with the documentation. <Danna Zhou - Last Filed: 10/20/17 14:22> (2) CAD (coronary artery disease) Qualifiers: Coronary Disease-Associated Artery/Lesion type: unspecified vessel or lesion type [place] vs. transplanted heart: [place] heart Associated angina: angina presence unspecified Qualified Code(s): I25.10 - Atherosclerotic heart disease of [place] coronary artery without angina pectoris (3) HTN (hypertension) Qualifiers: Hypertension type: essential hypertension Qualified Code(s): I10 - Essential (primary) hypertension <RosalesDavid - Last Filed: 10/20/17 15:45> (1) Abdominal pain Qualifiers: Abdominal location: generalized Qualified Code(s): R10.84 - Generalized abdominal pain (4) CAD (coronary artery disease) Qualifiers: Coronary Disease-Associated Artery/Lesion type: unspecified vessel or lesion type [place] vs. transplanted heart: [place] heart Associated angina: angina presence unspecified Qualified Code(s): I25.10 - Atherosclerotic heart disease of [place] coronary artery without angina pectoris (5) HTN (hypertension) Qualifiers: Hypertension type: essential hypertension Qualified Code(s): I10 - Essential (primary) hypertension
[2017-10-20] MEDS ORDERED: Furosemide 40 MG/4 ML VIAL IVP SCH (21:00)
[2017-10-21 04:44] LABS: Basophils # 0.1 K/mcL (0.0-0.2); Basophils % 0.9 %; Eosinophils # 0.2 K/mcL (0.0-0.6); Eosinophils % 3.1 %; Hemoglobin 8.8 g/dL (11.5-15.4); Immature Granulocytes % 0.3 % (0-4); Lymphocytes # 1.3 K/mcL (0.6-4.6); Lymphocytes % 22.4 %; Mean Corpuscular HGB Conc 33.8 g/dL (31.6-35.5); Mean Corpuscular Hemoglobin 31.5 pg (28.0-33.3); Mean Corpuscular Volume 93.2 fL (83.0-100.0); Mean Platelet Volume 11.6 fL (9.4-12.4); Monocytes # 0.7 K/mcL (0.0-1.3); Monocytes % 12.5 %; Neutrophils # 3.5 K/mcL (1.6-8.9); Platelet Count 186 K/mcL (140-400); Red Blood Count 2.79 M/mcL (3.82-4.97); Red Cell Distribution Width 15.3 % (11.5-14.5); Segmented Neutrophils % 60.8 %
[2017-10-21 05:07] LABS: Alanine Aminotransferase 8 Units/L (7-52); Albumin 3.9 g/dL (3.5-5.7); Albumin/Globulin Ratio 1.4 (1.1-2.2); Alkaline Phosphatase 72 Units/L (34-104); Aspartate Amino Transferase 18 Units/L (13-39); BUN/Creatinine Ratio 11 (6-26); Bilirubin,Total 0.4 mg/dL (0.3-1.0); Blood Urea Nitrogen 9 mg/dL (8-23); Calcium 9.3 mg/dL (8.6-10.3); Carbon Dioxide 24 mEq/L (23-29); Chloride 106 mEq/L (98-107); Globulin 2.8 g/dL (2.4-3.5); Glucose 98 mg/dL (70-105); Osmolality,Calculated 283 (280-300); Potassium 3.6 mEq/L (3.5-5.1); Sodium 137 mEq/L (136-145); Total Protein 6.7 g/dL (6.4-8.9); eGFR For Non-African Americans > 60 (> 60)
--- NOTE | 2017-10-21 07:00 | Discharge Summary ---
<Danna Zhou - Last Filed: 10/21/17 08:47> - NOTES TO OUTPATIENT PROVIDER Notes to Outpatient Provider: Patient was treated for a partial small bowel obstruction and should return home in a new bowel regimen. Date of Encounter: 10/21/17 Time of Encounter: 06:58 - Discharge Diagnosis (1) Partial small bowel obstruction Priority: Primary Status: Resolved (2) CAD (coronary artery disease) Priority: Secondary Status: Chronic Qualifiers: Coronary Disease-Associated Artery/Lesion type: unspecified vessel or lesion type [place] vs. transplanted heart: [place] heart Associated angina: angina presence unspecified Qualified Code(s): I25.10 - Atherosclerotic heart disease of [place] coronary artery without angina pectoris (3) HTN (hypertension) Priority: Secondary Status: Chronic Qualifiers: Hypertension type: essential hypertension Qualified Code(s): I10 - Essential (primary) hypertension Hospital course: Ms. Burr is a 81 year old female with history of CAD, HTN, TIA and multiple abdominal surgeries presented with nausea and abdominal pain on 10-18 and was found to have a partial Small Bowel Obstruction. CT abdomen showed dilation of small bowel to 3.6cm and inflammatory changes with mesenteric fluid in LLQ. Surgery was consulted and advised to continue medical therapy alone. She was started on IVF and NPO - then improved. Treated with protonix and PRN Zofran. Vitals remained stable. WBC on admit 10.7 and continued to trend down to 5.8 and at discharge HgB of 8.8 at baseline. On 10-20 , she had normal bowel movement and advanced diet up to to regular so IVF stopped. On final day of admission she had temporary confusion after wakened at 4am for morning blood draw that resolved later in morning - remained A&Ox3. At discharge mild abdominal tenderness with nausea resolved and good appetite. She will return on home medications with script for bowel regimen and return to home with her home health. - Time Spent with Patient Total time spent providing and/or coordinating discharge services: - Discharge Medications Prescriptions: Bisacodyl [Dulcolax] 5 mg PO BID #30 tablet Polyethylene Glycol 3350 [MiraLAX] 17 gm PO DAILY 30 Days #30 powd.pack Polyethylene Glycol 3350 [MiraLAX] 17 gm PO DAILY #30 powd.pack Home Medications: Sertraline [Zoloft] 100 mg PO DAILY 04/29/16 [History] Clopidogrel [Plavix] 75 mg PO DAILY 10/18/17 [History] Diltiazem CD (24hr) [Cardizem CD] 120 mg PO DAILY 10/18/17 [History] Metoprolol [Lopressor] 25 mg PO BID 10/18/17 [History] Oxybutynin Chloride [Ditropan Xl] 5 mg PO DAILY 10/18/17 [History] Pantoprazole Sodium [Protonix] 40 mg PO DAILY 10/18/17 [History] Bisacodyl [Dulcolax] 5 mg PO BID #30 tablet 10/21/17 [Rx] Polyethylene Glycol 3350 [MiraLAX] 17 gm PO DAILY #30 powd.pack 10/21/17 [Rx] Polyethylene Glycol 3350 [MiraLAX] 17 gm PO DAILY 30 Days #30 powd.pack [Rx] Allergies/Adverse Reactions: 3 Allergy/AdvReac Type Severity Reaction Status Date / Time Penicillins Allergy Rash Verified 04/17/17 19:28 Sulfa (Sulfonamide Allergy Rash Verified 04/17/17 19:28 Antibiotics) Iodine contrast Allergy Hives Uncoded 04/17/17 19:28 Date of admission: 10/20/17 15:47 Primary care physician: Adam Salinas DO Consults: 10/18/17 14:37 Consult to Surgery [CONS] Routine Consulting Provider: [facility] Reason for Consult: Patient is 81 yo female w/SBO. CT of the abdomen and pelvis today shows findings consistent with partial small bowel obstruction with transition point suspected in the left lower abdomen. Status post cholecystectomy and hysterectomy. Last BM last night (formed). Denies unusual bleeding. Hgb 9.8 today at 10: 29. Call Completed: Yes 10/18/17 14:57 Consult to Paper Goods Machine Operator [CONS] Routine Reason for SW Consult: Please assess patient for possible home needs for post -discharge planning. Discharging clinician: Danna Zhou - Constitutional Vitals: Temp Pulse Resp BP Pulse Ox 98.1 F 77 15 160/73 97 10/21/17 06:32 10/21/17 06:32 10/21/17 06:32 10/21/17 06:32 10/21/17 06:32 General appearance: Present: cooperative, A&O X 3, pleasant, no acute distress, answers questions appropriately - Head Head exam: Present: atraumatic, normocephalic - Respiratory Respiratory exam: Present: wheezes. Absent: respiratory distress, rhonchi, stridor Additional comments: mild wheeze in LLL - Cardiovascular Cardiovascular exam: Present: RRR. Absent: gallop, rubs - GI/Abdominal GI/Abdominal exam: Present: guarding, normal bowel sounds, soft, tenderness. Absent: mass Additional comments: LLQ and RLQ mild tenderness - Extremities Exam Extremities exam: Present: normal inspection, radial pulses palpable and symmetrical. Absent: joint swelling, pedal edema - Psychiatric Psychiatric exam: Present: normal affect, normal mood. Absent: anxious - Patient Status Disposition: Home Health Service Condition: Good Functional capacity at discharge: independent ambulation Overall status at discharge: patient is progressing back to baseline - Discharge Instructions Instructions: Bowel Obstruction (DC) Follow Up With: Adam Salinas DO [Primary Care Provider] - - Diet and Activity Activity: increase activity as tolerated Diet: advance to your usual diet - VTE Documentation of Mechanical Device: Intermittent pneumatic compression device <RosalesDavid - Last Filed: 10/21/17 10:35> Date of Encounter: 10/21/17 - Discharge Diagnosis (1) Abdominal pain Status: Inactive Qualifiers: Abdominal location: generalized Qualified Code(s): R10.84 - Generalized abdominal pain (2) Partial small bowel obstruction Status: Resolved (3) Drop in hemoglobin Status: Acute (4) CAD (coronary artery disease) Status: Chronic Qualifiers: Coronary Disease-Associated Artery/Lesion type: unspecified vessel or lesion type [place] vs. transplanted heart: [place] heart Associated angina: angina presence unspecified Qualified Code(s): I25.10 - Atherosclerotic heart disease of [place] coronary artery without angina pectoris (5) HTN (hypertension) Status: Chronic Qualifiers: Hypertension type: essential hypertension Qualified Code(s): I10 - Essential (primary) hypertension (6) DVT prophylaxis Status: Acute Hospital course: Ms. Burr is a 81 year old female - Time Spent with Patient Total time spent providing and/or coordinating discharge services: Date of admission: 10/20/17 15:47 Primary care physician: Adam Salinas DO Consults: 10/18/17 14:37 Consult to Surgery [CONS] Routine Consulting Provider: [facility] Reason for Consult: Patient is 81 yo female w/SBO. CT of the abdomen and pelvis today shows findings consistent with partial small bowel obstruction with transition point suspected in the left lower abdomen. Status post cholecystectomy and hysterectomy. Last BM last night (formed). Denies unusual bleeding. Hgb 9.8 today at 10: 29. Call Completed: Yes 10/18/17 14:57 Consult to Paper Goods Machine Operator [CONS] Routine Reason for SW Consult: Please assess patient for possible home needs for post -discharge planning. - Constitutional Vitals: Temp Pulse Resp BP Pulse Ox 98.1 F 77 15 160/73 97 10/21/17 06:32 10/21/17 06:32 10/21/17 06:32 10/21/17 06:32 10/21/17 06:32 - Attending Attestation I have seen and examined this patient independently. I have discussed with resident physician Dr. Zhou regarding the discharge and follow-up plan. Agree with the documentation.
--- NOTE | 2017-10-21 09:21 | Physician Discharge Referral ---
Home Health/Hosp Referral Info Transfer to: Home Health (return to home health as before admit) Provider in Charge Post Discharge: PCP - Diagnosis (1) Partial small bowel obstruction Status: Resolved (2) CAD (coronary artery disease) Status: Chronic (3) HTN (hypertension) Status: Chronic - Respiratory Orders Smoking Cessation: Smoking cessation has been advised. For more information, call the [place] Tobacco Quit Line at 6-683-HVXL-NOW. - Transfer Medications Prescriptions: Bisacodyl [Dulcolax] 5 mg PO BID #30 tablet Polyethylene Glycol 3350 [MiraLAX] 17 gm PO DAILY 30 Days #30 powd.pack Polyethylene Glycol 3350 [MiraLAX] 17 gm PO DAILY #30 powd.pack Home Medications: Sertraline [Zoloft] 100 mg PO DAILY 04/29/16 [History] Clopidogrel [Plavix] 75 mg PO DAILY 10/18/17 [History] Diltiazem CD (24hr) [Cardizem CD] 120 mg PO DAILY 10/18/17 [History] Metoprolol [Lopressor] 25 mg PO BID 10/18/17 [History] Oxybutynin Chloride [Ditropan Xl] 5 mg PO DAILY 10/18/17 [History] Pantoprazole Sodium [Protonix] 40 mg PO DAILY 10/18/17 [History] Bisacodyl [Dulcolax] 5 mg PO BID #30 tablet 10/21/17 [Rx] Polyethylene Glycol 3350 [MiraLAX] 17 gm PO DAILY #30 powd.pack 10/21/17 [Rx] Polyethylene Glycol 3350 [MiraLAX] 17 gm PO DAILY 30 Days #30 powd.pack [Rx] Allergies/Adverse Reactions: 3 Allergy/AdvReac Type Severity Reaction Status Date / Time Penicillins Allergy Rash Verified 04/17/17 19:28 Sulfa (Sulfonamide Allergy Rash Verified 04/17/17 19:28 Antibiotics) Iodine contrast Allergy Hives Uncoded 04/17/17 19:28 Certification: Further, I certify that my clinical findings support that this patient is homebound (i.e. absences from home require considerable and taxing effort and are for medical reasons or yarsanism services or infrequently or short duration when for other reasons) because: Homebound Reason: Patient requires assistance of a person or device to safely leave home Attestation: My signature below is to certify that this patient is under my care and that I, or nurse practitioner, or a physician's operations manager assistant working with me, has a face-to -face encounter with this patient.
[2017-10-21] MEDS: Diltiazem CD (24hr) 120 MG CAPSULE PO SCH (10:14)
[2017-10-21] MEDS: Pantoprazole 40 MG VIAL IVP SCH (10:14)
[2017-10-21 11:34] VITALS: BP 163/61
== END 2017-10-21 11:53 | disposition home health service (06) | DRG 389 ==
LOC: 3ANU
PROVIDERS: ADMIT Hospitalist; ATTEND Hospitalist